=== PATIENT | female | born 1960 | race Caucasian/White ===

== ENCOUNTER 2025-06-10 14:52 | Inpatient (IN) | payer BC, SELFPAY ==
[2025-06-10] VITALS (10 sets, daily range): BP systolic 107–141; BP diastolic 47–83; BMI 18.5; BMI 18.1
[2025-06-10 13:24] LABS: Hematocrit 25.9 % (37.0-47.0); Hemoglobin 8.4 g/dL (12.0-16.0); Mean Corp Hgb Conc. 32.4 g/dL (33.0-37.0); Mean Corpuscular Volume 82.0 fL (81.0-99.0); Nucleated Red Blood Cells % 0 %; Platelet Count 141 10^3/uL (130-400); Red Cell Dist. Width 21.0 % (11.5-14.5)
[2025-06-10 13:27] LABS: APTT 25.5 Sec (23.4-35.0); INR 1.16; PT 15.1 Sec (11.4-14.6)
--- NOTE | 2025-06-10 13:31 | ED.GENMED ---
History of Present Illness
General
Chief Complaint: Rectal Bleeding
Source: patient and family
Exam Limitations: none
Time Seen by Provider: 06/10/25 12:56
Nursing documentation reviewed up to this point in time: agreed with
History of Present Illness
History of Present Illness:
64-year-old female visiting from [place]
Had some loco colored loose stools at 3 AM then vomited some similar appearing vomitus had some grits yesterday but as did family members who are not sick does not drink or smoke
Patient has complex past medical history most notably liver cancer status post resection x 2 of her liver, lung resection for mets to brain resection from mets-no blood thinners, no history of GI bleeding she did take a Naprosyn after she vomited
but none before
Patient was never a drinker, never had hepatitis
Baseline hemoglobin is in the mid 10 range per my review of her records
Past History
Past History
ED Past Medical History: Cancer
ED Past Surgical History: Brain and Other (Liver resection x 2 lung resection brain resection)
Social History
Tobacco: Non-smoker
Alcohol: None
Drug: None
Living: with family
Review of Systems
Review of Systems
All Other Systems: Not applicable
Constitutional: Reports fatigue; Denies fever
EENT: Reports no symptoms
Respiratory: Reports no symptoms
Cardiac: Denies chest pain
ABD/GI: Reports vomiting and bloody stools
: Reports no symptoms
Skin: Reports no symptoms
Neurological: Reports weakness
Endocrine: Reports no symptoms
Hematologic/Lymphatic: Reports no symptoms
Psychiatric: Reports no symptoms
Phy Exam
Physical Exam
Physical Exam:
Physical Exam
General: Chronically ill nontoxic
Neck: Patient looks pale
Heart: Tachycardia
Lungs: no acute respiratory distress. clear bilaterally
Abdomen: Soft flat nontender
Rectal maroonish guaiac positive
Neuro: alert and oriented. no focal neurological deficits
Skin: no rash
Psychiatric: well kept. interactive and cooperative
Extremities: no edema.
Course
Orders/Labs/Results
Orders:
Orders
06/10/25 12:46
Cardiac Monitoring- Treatment ONCE
IV Insert/Care/Rem.- Treatment PRN
O2 Therapy [RESP] Urgent
Titrate/Wean O2 to maintain O2 sat greater than (%): 93
Special Instructions: MAINTAIN CONTINOUS O2 SATS > OR = 93%
Pulse Ox/spot Check [RESP] Urgent
Quantity: 1
Special Instructions: ON ROOM AIR
06/10/25 13:01
Type+Screen Urgent
Complete Blood Count/With Diff Urgent
Comprehensive Metabolic Panel Urgent
PTT Urgent
Prothrombin Time Urgent
06/10/25 13:29
0.9% Sodium Chloride 1000 ml [Nss] 1,000 ml IV BOLUS
Ondansetron Injectable [Zofran] 4 mg IV NOW STA
Pantoprazole [Protonix IV] 80 mg IV NOW STA
06/10/25 13:59
US Abdomen Complete/Upper Urgent
Comment:
Reason For Exam: eval for any signs cirrhosis
06/10/25 14:07
GASTROINTESTINAL CONSULT Urgent
Consulting Provider: Varsha Obregon
Was physician already notified: Yes
06/10/25 14:13
Electrocardiogram (*1) Urgent
Reason for Study: Palpitations
EKG- Treatment ONCE
06/10/25 14:30
Heparin Pf [Heparin Lock Flush] 500 unit IV PER PROTOCOL
06/10/25 14:36
ABO2 Urgent
BBK Wristband Number:
Associate notified that ABO2 has been ordered: RICH-ER
Date: 06/10/25
Time: 13:17
Car Restorer ID: [id number]
06/10/25 14:40
Admit/Transfer Patient As Directed
Co-Sign Provider:
Level of Care: Inpatient admission
Assign to:: IMU- Intermediate Care
Physician / Group: Glen
Diagnosis: GI Bleed
Reason for Hospitalization: PPI drip, GI Consult
Expected length of stay greater than two midnights?: Yes
ELOS- Estimated Length of Stay in days: 3
I certify the patient meets the requirements for IP care: Yes
PRN Pain Medication Management As Directed
May give lesser potent ordered pain med per pt: Yes
preference::
Protocol:: Medication orders for pain may be administered in a
manner that supports deferring to patient preference
when the pt is:
- Requesting an ordered lesser potent pain medication.
Least to most potent pain medications are defined
as: acetaminophen < NSAID < tramadol < opioids
(morphine, oxycodone, hydromorphone).
- Requesting a lesser dose of the same medication IF
ORDERED.
- Requesting a less intrusive route of administration
if both routes are prescribed by the provider (PO <
IV).
06/10/25 14:41
Code Status As Directed
Resuscitation Status: Full Code
06/10/25 14:50
Pantoprazole 80 mg/100 ml Nss [Protonix] 80 mg in 100 ml IV Q10H
06/10/25 14:52
Add On- LAB Routine
Tests Added?: iron, ferritin, tibc, folate, vit b12
06/10/25 15:00
0.9% Sodium Chloride 1000 ml [Nss] 1,000 ml IV 100 mls/hr
06/10/25 17:00
H&H Q6H
06/10/25 23:00
H&H Q6H
Abnormal Lab Results
06/10/25
13:01
RBC 3.16 L 10^6/uL
(4.20-5.40)
Hgb 8.4 L g/dL
(12.0-16.0)
Hct 25.9 L %
(37.0-47.0)
MCH 26.6 L pg
(27.0-31.0)
MCHC 32.4 L g/dL
(33.0-37.0)
RDW 21.0 H %
(11.5-14.5)
MPV 11.4 H fL
(7.4-10.4)
Absolute Lymphs (auto) 0.6 L 10^3/uL
(1.2-3.4)
Neutrophils % 78.4 H %
(42.2-75.2)
Lymphocytes % 11.0 L %
(20.5-51.1)
Monocytes % 10.2 H %
(1.7-9.3)
PT 15.1 H Sec
(11.4-14.6)
Chloride 108 H mmol/L
(98-107)
BUN 26 H mg/dl
(7-17)
Creatinine 0.5 L mg/dL
(0.6-1.0)
AST 57 H U/L
(14-36)
ALT 40 H U/L
(0-35)
Alkaline Phosphatase 304 H U/L
(38-126)
Total Protein 5.3 L g/dl
(6.3-8.2)
Albumin 2.9 L g/dl
(3.5-5.0)
06/10/25 13:01
Vital Signs
Initial and Last Documented VS:
Initial Vital Signs
Temp Pulse Resp BP Pulse Ox
97.9 F 110 18 128/83 100
06/10/25 12:19 06/10/25 12:19 06/10/25 12:19 06/10/25 12:19 06/10/25 12:19
Last Documented Vital Signs
Temp Pulse Resp BP Pulse Ox
97.9 F 111 16 136/59 98
06/10/25 12:19 06/10/25 14:00 06/10/25 14:00 06/10/25 14:00 06/10/25 14:00
MDM/Problems Addressed
Differential Diagnosis Includes:
Upper GI bleed lower GI bleed colitis
MDM/Problems Addressed:
GI bleeding
Chronic conditions affecting care:
Liver cancer
Acute Exacerbation and/or Progression of Chronic Illness:
Liver cancer
*Pulse Oximetry
SaO2: 100
Oxygen Mode of Delivery: Room air
Patient hypoxic: no
*EKG
Interpreted by ED Provider?: Yes
Interpretation: normal
Comparison EKG: no comparison EKG present
Heart Rate: 78
Rate: normal
Rhythm: sinus
Ischemia: no ischemia
*Work Station Support Specialist Interpretation
Rate: normal
Interpretation: normal
Heart Rate: 78
Rhythm: sinus
*Critical Care Note
Total Time (30-74mins, 75-104mins- exclusive of procedures): 12
Update Note
Update Note:
Update patient tachycardic otherwise stable vital signs does look pale chronically ill hemoglobin noted BUN/creatinine noted will start volume resuscitation Protonix at this point I believe it would be prudent to admit her to the hospital as opposed
to going back to [place] tomorrow
ED Attending Note
-
Portions of this chart may have been created with voice recognition software.� Occasional wrong word or��sound alike� substitutions may have occurred due to the inherent limitations of voice recognition software.
Discharge Plan
Departure
Patient Disposition: Admit
Date of Disposition: 06/10/25
Time of Disposition: 14:12
Admit to: Telemetry
Presentation/result/management discussed w/ accepting MD/DO: Hospitalist
Patient with high blood pressure during this ER visit?: No
Condition: Fair
Discharge Problem:
Acute GI bleeding, Cancer of liver
Prescriptions:
No Action
levothyroxine 137 mcg Tablet
137 mcg PO DAILY
venlafaxine [Effexor XR] 75 mg Capsule,Extended Release 24hr
75 mg PO DAILY
pantoprazole [Protonix] 40 mg Tablet,Delayed Release (Dr/Ec)
40 mg PO DAILY
Cabometyx 60 mg tablet
30 mg PO DAILY
Referrals:
NONE,* [Family Provider, Internal Medicine]
Interventions
Interventions:
*Risk Screen - Suicide Last Done: 06/10/25 12:19
*General Assessment Last Done: 06/10/25 12:19
*Neglect/Abuse Screening Last Done: 06/10/25 12:19
*ED- Fall Risk Assessment Last Done: 06/10/25 12:49
*ED COVID-19 Vaccine History Last Done: 06/10/25 12:49
BX-Mivndz-Oslsdetbkv Assessment Last Done: 06/10/25 13:00
ED- Cardiac Assessment Last Done: 06/10/25 13:02
ED- Pulmonary Assessment Last Done: 06/10/25 13:02
Discharge Date and Time
Print Language: AZERI
[2025-06-10 13:36] LABS: ALT (SGPT) 40 U/L (0-35); AST (SGOT) 57 U/L (14-36); Albumin 2.9 g/dl (3.5-5.0); Alkaline Phosphatase 304 U/L (38-126); Blood Urea Nitrogen 26 mg/dl (7-17); Calcium 8.8 mg/dl (8.4-10.2); Carbon Dioxide 26 mmol/L (22-30); Chloride 108 mmol/L (98-107); Estimated Creatinine Clearance 86 ml/min; Glucose 92 mg/dl (70-99); Potassium 3.7 mmol/L (3.5-5.1); Sodium 136 mmol/L (135-145); Total Protein 5.3 g/dl (6.3-8.2); eGFR > 60.00
--- NOTE | 2025-06-10 14:10 | HPS.HSE ---
Family Physician
-
Family Physician: * NONE
Chief Complaint
-
Vomiting and Bloody Stools
History of Present Illness
Patient is a 64 y/o female past medical history of Metastatic Hepatocellular Carcinoma managed at [facility] where patient resides who presents with vomiting and bloody stools. Patient awoke around 3AM this morning to
use the bathroom at which time she a bowel movement described at loco red colored. 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 Patient then had a second bloody bowel movement about 15 minutes prior to arrival. Patient
reports ongoing treatment for her metastatic hepatocellular carcinoma which was originally diagnosed in 2019. Patient denies any prior history of GI Bleed and denies cirrhosis. She denies prior upper endoscopy or colonoscopy.
Medical History
Past Medical History
Past Medical History: Reports Other
Additional Past Medical History:
Metastatic Hepatocellular Carcinoma s/p Liver Resection / Left Lung Wedge Resection / Craniotomy for Brain Tumor Resection, Radiation and Chemotherapy
Hypothyroidism
Depression
Past Surgical History: Reports Other
Additional Past Surgical History:
Hepatic Resection
Left Lung Wedge Resection
Craniotomy
Breast Implants
Social History
Tobacco: Non-smoker
Alcohol: None
Family History
Family History: Not pertinent
Allergies / Home Medications
Allergies reflects when Allergies were last updated in [employer].
Home Medications with original date entered in [employer]
Allergy/Medication List:
Allergies
Allergy/AdvReac Type Severity Reaction Status Date / Time
No Known Allergies Allergy Unverified 06/10/25 12:19
Home Medications
cabozantinib 60 mg tablet (Cabometyx) 30 mg PO DAILY 06/10/25
levothyroxine 137 mcg tablet 137 mcg PO DAILY 06/10/25
pantoprazole 40 mg tablet,delayed release (Protonix) 40 mg PO DAILY 06/10/25
venlafaxine 75 mg capsule,extended release 24 hr (Effexor XR) 75 mg PO DAILY 06/10/25
Review of Systems
-
A 12 point ROS was completed and negative except as noted: Yes
Constitutional: Denies Fever or Chills
Respiratory: Denies Cough or Trouble Breathing
Abdomen/GI: Reports Other (Patient reports some abdominal distention related to ascites is scheduled for a paracentesis next week in [place]); Denies Abdominal Pain, Nausea or Vomiting
Physical Exam
Vital Signs
Vital Signs
Temp Pulse Resp BP Pulse Ox
97.9 F 110 18 128/83 100
06/10/25 12:19 06/10/25 12:19 06/10/25 12:19 06/10/25 12:19 06/10/25 13:31
Physical Exam
General: Comfortable and Conversant
HEENT: Anicteric and Moist mucous membranes
Respiratory: Clear and Non Labored Respirations
Cardiac: S1/S2 and Regular Rhythm
GI: Soft, Non Tender and Other (Slight distention with slight fluid wave)
Rectal: Deferred by Provider
Musculoskeletal: No Clubbing, No Cyanosis and Other (Trace lower extremity edema)
Skin: Warm and Dry
Neuro: Awake, Alert, Oriented and Nonfocal/grossly intact
Psych: Calm
Laboratory Results
-
06/10/25 13:01
06/10/25 13:01
Laboratory Results
PT 15.1 Sec (11.4-14.6) H 06/10/25 13:01
INR 1.16 06/10/25 13:01
APTT 25.5 Sec (23.4-35.0) 06/10/25 13:01
Total Bilirubin 0.6 mg/dl (0.2-1.3) 06/10/25 13:01
AST 57 U/L (14-36) H 06/10/25 13:01
ALT 40 U/L (0-35) H 06/10/25 13:01
Alkaline Phosphatase 304 U/L (38-126) H 06/10/25 13:01
Data Reviewed
-
Lab Data: Labs Reviewed by me
Impression/Plan
-
GI Bleed, unclear if upper or lower but favor upper in setting of hematemesis
-Consult GI
-Continue NPO/IVFs
-Continue Protonix drip
Acute Blood Loss Anemia
-Reviewed outpatient records with Hgb 10.6 on 05/16/25
-Trend serial Hgb
Metastatic Hepatocellular Carcinoma
-Managed at [facility]
-Hold Cabometyx
-Check Abd US to assess for underlying ascites
Hypothyroidism
-Continue levothyroxine
Depression
-Continue Effexor
DVT proph: SCDs
[2025-06-10] MEDS: NSS 1000 IV ×2 (14:12→16:07)
[2025-06-10] MEDS: PROTONIX IV 80 MG IV (14:13)
[2025-06-10] MEDS: ZOFRAN 4 MG IV (14:13)
--- NOTE | 2025-06-10 15:17 | CON.GI ---
Addendum entered and electronically signed by Varsha Obregon MD 06/10/25 17:52:
error - some distension in abd on exam
Original Note:
Consultation
-
Date/Time Consultation Requested: 06/10/2025, 2pm
Date/Time Consultation Performed: 06/10/2025, 3pm
Requesting Provider: Dr. Perkins
Performing Provider: Dr. Obregon
Reason for Consultation: hematemesis, BRBPR
Medical History
Chief Complaint / HPI
Chief Complaint: hematemesis/BRBPR
History of Present Illness:
64 yo F with past medical history of liver cancer diagnosed in 2019 undergone multiple resections, currently undergoing Y90 and oral chemo, no history of cirrhosis or underlying liver dz (no hx of etoh, obesity) presenting with hematemesis and
bright red blood per rectum. This started at 3 in the morning she had blood from both ends. She had another bloody bowel movement at 10 AM. She also endorses some dizziness and shortness of breath with exertion. Denies any abdominal pain. Her
reflux has been worse the last few days. Yesterday she felt very cold. She also has been having bloating and decreased appetite and was found to have ascites on her most recent MRI a month ago. She was due for Y90 on Thursday and plan was to do a
paracentesis at the same time.
Past Medical History
Past Medical History: Cancer (liver cancer), HTN, Hypothyroidism, Psychiatric (Depression) and Other (reflux)
Past Surgical History: Other (hepatic resection, left lung wedge, craniotomy, breast implants)
Social History
Tobacco: Non-Smoker
Alcohol: Other (rare, none since 2019)
Drug: None
Family History
Family History: Reviewed & Not Pertinent
Allergies / Home Medications
Allergy/AdvReac Type Severity Reaction Status Date / Time
No Known Allergies Allergy Verified 06/10/25 15:13
�Medication �Instructions �Recorded
cabozantinib 60 mg tablet 30 mg PO DAILY 06/10/25
(Cabometyx)
levothyroxine 137 mcg tablet 137 mcg PO DAILY 06/10/25
pantoprazole 40 mg tablet,delayed 40 mg PO DAILY 06/10/25
release (Protonix)
venlafaxine 75 mg capsule,extended 75 mg PO DAILY 06/10/25
release 24 hr (Effexor XR)
Review of Systems
-
All other systems: A 12 pt ROS was Negative except as stated above in HPI
Vital Signs
Temp Pulse Resp BP Pulse Ox
97.9 F 99 20 140/74 96
06/10/25 12:19 06/10/25 15:00 06/10/25 15:00 06/10/25 15:00 06/10/25 15:00
Physical Exam
Exam
General: Well Developed
HEENT: Normocephalic
Respiratory: Clear
Cardiac: S1/S2
GI: Non Tender and Non Distended
Genito-urinary: No Costovertebral Tender
Musculoskeletal: No Clubbing
Skin: Warm
Neuro: AO x 3
Hematologic/Lymphatic: No Lymphadenopathy
Psych: Calm
Results
WBC 5.2 10^3/uL (4.8-10.8) 06/10/25 13:01
Hgb 8.4 g/dL (12.0-16.0) L 06/10/25 13:01
Hct 25.9 % (37.0-47.0) L 06/10/25 13:01
MCV 82.0 fL (81.0-99.0) 06/10/25 13:01
Plt Count 141 10^3/uL (130-400) 06/10/25 13:01
Absolute Neuts (auto) 4.1 10^3/uL (1.4-6.5) 06/10/25 13:01
PT 15.1 Sec (11.4-14.6) H 06/10/25 13:01
INR 1.16 08/02/25 13:01
APTT 25.5 Sec (23.4-35.0) 06/10/25 13:01
Sodium 136 mmol/L (135-145) 06/10/25 13:01
Potassium 3.7 mmol/L (3.5-5.1) 06/10/25 13:
Chloride 108 mmol/L (98-107) H 06/10/25 13:
Carbon Dioxide 26 mmol/L (22-30) 06/10/25 13:
BUN 26 mg/dl (7-17) H 06/10/25 13:
Creatinine 0.5 mg/dL (0.6-1.0) L 06/10/25 13:
Calcium 8.8 mg/dl (8.4-10.2) 06/10/25 13:
Total Bilirubin 0.6 mg/dl (0.2-1.3) 06/10/25 13:
AST 57 U/L (14-36) H 06/10/25 13:01
ALT 40 U/L (0-35) H 06/10/25 13:01
Alkaline Phosphatase 304 U/L (38-126) H 06/10/25 13:01
Diagnostic Image Results:
Prior GI Procedures:
EGD:
Colonoscopy:
Assessment / Plan
-
64 yo F pmh liver cancer p/w hematemesis and BRBPR. Hb 8.4, plt 141, INR 1.16, BUN 26.
BP stable, tachycardia)
Diff diagnosis: PUD (no NSAIDs), varices (? history of cirrhosis - not known but does have recent onset of ascites and past history of liver cancer), AVM, seems less likely to be small bowel/lower GIB with hematemesis.
Given the history of ? cirrhosis plan for EGD today. Discussed with patient risk, terms, benefits of upper endoscopy including but not limited to bleeding, infection, perforation. Patient understands risk and is willing to proceed. In the
interim, recommend PPI drip, octreotide drip, n.p.o., trend hemoglobin. Had MRI at outside institution 1 year ago if possible can get these results otherwise consider Doppler ultrasound. May need paracentesis prior to discharge. Further
recommendations pending upper endoscopy. If does have signs of pHTN will need antibiotics as well for bleeding. Discussed with hospitalist physician tutoring assistant and emergency room physician.
-
-
Thank you for consultation and allowing me to participate in the patient's care. Please call the it application administrator GI physician during the after hours with any questions or concerns.
[2025-06-10] MEDS: PROTONIX 100 IV (15:19)
--- NOTE | 2025-06-10 15:41 | W.PN.UPDATE ---
Update Note
Progress Note Update
Patient seen and examined independently
Please see PA note for full details
64 y/o woman with a past medical history of Metastatic Hepatocellular Carcinoma presents with vomiting and bloody stools. She awoke around 3AM to use the bathroom at which time she a bowel movement described at loco red color. She then had an
episode of hematemesis. She had a second bloody bowel movement 15 minutes prior to arrival. Patient reports ongoing treatment for her metastatic hepatocellular carcinoma. She denies any prior history of GI Bleed and denies cirrhosis. She denies
prior upper endoscopy or colonoscopy. At the time of my interview she was comfortable.
Past Medical History
Metastatic Hepatocellular Carcinoma s/p Liver Resection
Left Lung Wedge Resection
Craniotomy for Brain Tumor Resection,
Radiation and Chemotherapy
Hypothyroidism
Depression
Hepatic Resection
Breast Implants
Physical Exam
General: Comfortable
Respiratory: Clear
Cardiac: S1/S2
GI: Soft, Non Tender
Skin: Warm and Dry
Neuro: Awake, Alert,
Psych: Calm
Impression/Plan
1. GI Bleed, unclear if upper or lower but favor upper in setting of hematemesis
Consult GI - needs EGD
NPO with IVFs
Protonix drip
2. Acute Blood Loss Anemia
Trend serial Hgb
Please see PA note for full details on:
Metastatic Hepatocellular Carcinoma
Hypothyroidism
Depression
[2025-06-10 15:47] LABS: Iron 53 ug/dl (37-170)
[2025-06-10 15:57] LABS: Total Iron Binding Capacity 302 ug/dl (265-497)
[2025-06-10] MEDS: SANDOSTATIN 250 MCG IV (16:09)
--- NOTE | 2025-06-10 16:20 | CM ---
Reviewed the chart notes and spoke with the patient at the bedside. Patient resides in [place]. The patient resides in a two story home with a prefinish operator (a friend of her daughter's) who works around the house and property for room and board. The
patient reports no DME/VN/SNF in the past. The confirmed her pharmacy of choice is [facility] while she is here in town. CM continues to be available to patient/family and is monitoring medical plan for needs at discharge.
Plan: Discharge once medically stable. No needs anticipated at this time.
[2025-06-10 16:24] LABS: Ferritin 16.5 ng/ml (11.1-264.0)
[2025-06-10 16:55] LABS: Folate 3.0 ng/ml (2.76-20); Vitamin B12 283 pg/ml (239-931)
[2025-06-10 19:36] LABS: Hematocrit 22.7 % (37.0-47.0); Hemoglobin 7.4 g/dL (12.0-16.0)
[2025-06-10] MEDS: PROTONIX IV 40 MG IV (19:49)
[2025-06-10] MEDS: ROCEPHIN 1000 MG IV (19:49)
--- NOTE | 2025-06-10 20:19 | PTCARENOTE ---
Addendum entered by Ge Burris RN 06/10/25 20:43:
1 pt. HGB drop to 7.4. House ANISA notified to get consent incase product is needed. T/S completed prior.
Rec: Suspect potentially systemically diluted House ANISA notified orders to change IVF rate to 75ml/hr.
Recheck H/H 2300.
Original Note:
Assumed care of pt. approx 1900.
Admit to unit post EGD. Offgoing report completed w. previous RN.
Mentating appropriately. Full gaze, normocephalic, focally intact.
Sinus to sinus tach w. periods of ectopic activity PAC/PVC. Normotensive, Normothermic.
Urinating w.o issue, No reports of hematemesis, or hematochezia, euglycemic.
Offers no complaints of pain, all questions answered.
[2025-06-10 23:18] LABS: Hematocrit 19.8 % (37.0-47.0); Hemoglobin 6.5 g/dL (12.0-16.0)
--- NOTE | 2025-06-10 23:18 | PTCARENOTE ---
Addendum entered by Ge Burris RN 06/10/25 23:28:
Orders to transfuse x1 U PRBC --> RPT H/H 2 hours post transfusion per house ANISA.
Original Note:
H/H Critical results relayed to [facility] ANISA.
--- NOTE | 2025-06-10 23:23 | W.PN.UPDATE ---
Update Note
Progress Note Update
~ 20:30 Concern for possible need for transfusion, Hgb 7.4. Patient Ox3, pale, Vital signs stable. Discussed possible need for blood transfusion with patient, reviewed risks and benefits, patient verbalized understanding,� written consent obtained.
23:00 critical lab received: Hgb 6.5, Hct 19.8. Ordered 1 unit PRBC's to be transfused tonight. Repeat H&H ordered, to be done 2 hours after completion of transfusion.
~ 3 am - Repeat Hgb 8.0. Repeat H&H ordered for 9 am.
~ 6 am - RN advised that patient reported black, tarry bowel movement this am.
[2025-06-11] VITALS (25 sets, daily range): BP systolic 112–149; BP diastolic 50–120; BMI 18.7
[2025-06-11] MEDS: NSS 1000 IV (00:06)
[2025-06-11] MEDS: SANDOSTATIN 250 MCG IV ×3 (00:06→23:18)
[2025-06-11 03:13] LABS: Hematocrit 24.3 % (37.0-47.0); Hemoglobin 8.0 g/dL (12.0-16.0); Mean Corp Hgb Conc. 32.9 g/dL (33.0-37.0); Mean Corpuscular Volume 82.7 fL (81.0-99.0); Platelet Count 83 10^3/uL (130-400); Red Cell Dist. Width 19.6 % (11.5-14.5)
[2025-06-11 03:30] LABS: ALT (SGPT) 33 U/L (0-35); AST (SGOT) 49 U/L (14-36); Albumin 2.3 g/dl (3.5-5.0); Alkaline Phosphatase 255 U/L (38-126); Blood Urea Nitrogen 23 mg/dl (7-17); Calcium 7.4 mg/dl (8.4-10.2); Carbon Dioxide 23 mmol/L (22-30); Chloride 113 mmol/L (98-107); Estimated Creatinine Clearance 84 ml/min; Glucose 95 mg/dl (70-99); Magnesium 1.4 mg/dl (1.6-2.3); Potassium 3.8 mmol/L (3.5-5.1); Sodium 138 mmol/L (135-145); Total Protein 4.4 g/dl (6.3-8.2); eGFR > 60.00
--- NOTE | 2025-06-11 06:10 | PTCARENOTE ---
Pt. had x1 episode of black tarry bowel movement.
House ANISA notified.
Normotensive, mentating approp.
[2025-06-11] MEDS: SYNTHROID 137 MCG PO (06:12)
[2025-06-11] MEDS: PROTONIX IV 40 MG IV ×2 (07:37→19:27)
[2025-06-11] MEDS: EFFEXOR XR 75 MG PO (07:38)
[2025-06-11 09:04] LABS: Hematocrit 26.9 % (37.0-47.0); Hemoglobin 8.9 g/dL (12.0-16.0)
[2025-06-11] MEDS: MAGNESIUM SULFATE 102 GRAMS IV (10:29)
--- NOTE | 2025-06-11 11:35 | W.PN.HOSP.TC ---
Today's Communication/Plan
-
Continue to trend hemoglobin
Transfuse as necessary
Continue with PPI, octreotide antibiotic
Replete magnesium
Repeat plan for endoscopy per GI
Assessment / Plan
Assessment / Plan
Acute blood loss anemia
Acute upper GI bleeding
- Status post endoscopy on admission with duodenal ulcer and gastric varices
- Patient remains with melanotic stools. Drop in hemoglobin.
- GI planning for repeat endoscopy today
- In the interim continue with PPI, octreotide. Ceftriaxone started by gastroenterology. NPO. Diet per GI.
Acute Blood Loss Anemia
-Reviewed outpatient records with Hgb 10.6 on 05/16/25
- Hemoglobin 8.9. Continue to trend every 6 hours and transfuse as needed.
Metastatic Hepatocellular Carcinoma
Pancytopenia
-Managed at [facility]
-Hold Cabometyx
-Check Abd US to assess for underlying ascites. If positive for ascites then ask [facility] for paracentesis
Chronic bradycardia
- Per patient at baseline her heart rate at rest is around mid 40s.
- Denies any lightheadedness or dizziness. Continue to monitor closely
- No pauses noted
Hypothyroidism
-Continue levothyroxine
Depression
-Continue Effexor
Hypomagnesemia
- Replete and monitor
DVT proph: SCDs in the setting of gastrointestinal bleeding
Discussed with gastroenterology
Anticipated Discharge: > 48 hours
Subjective/Interval History
-
Date of Service: June 11, 2025
states of abd distention
having melanotic stools
Objective Data
-
Labs:
Laboratory Results
06/11/25 06/11/25 06/11/25
02:52 03:00 04:00
WBC 2.5 L
Hgb 8.0 L D Cancelled Cancelled
Hct 24.3 L Cancelled Cancelled
Plt Count 83 L D
Sodium 138
Potassium 3.8
Chloride 113 H
Carbon Dioxide 23
BUN 23 H
Creatinine 0.6
Glucose 95
Calcium 7.4 L
Total Bilirubin 0.6
AST 49 H
ALT 33
Alkaline Phosphatase 255 H
06/11/25 06/11/25 06/11/25
08:53 15:00 21:00
WBC
Hgb 8.9 L Pending Pending
Hct 26.9 L Pending Pending
Plt Count
Sodium
Potassium
Chloride
Carbon Dioxide
BUN
Creatinine
Glucose
Calcium
Total Bilirubin
AST
ALT
Alkaline Phosphatase
Vital Signs:
Vital Signs
Temp Pulse Resp BP Pulse Ox
98.1 F 45 5 125/69 99
06/11/25 07:34 06/11/25 06:00 06/11/25 06:00 06/11/25 06:00 06/11/25 06:16
I&O
06/10/25 06/11/25 06/12/25
06:59 06:59 06:59
Intake Total 1849
Balance 1849
Physical Exam
-
General: Well Developed, No Apparent Distress and Other (pale)
HEENT: Normocephalic, Atraumatic and Moist Mucous Membranes
Respiratory: Clear to Auscultation
Cardiac: Regular Rhythm and S1/S2; Negative Murmur, Rub or Gallop
GI: Soft, Nontender, Normal Bowel Sounds and Distended (+fluid wave ); Negative Organomegaly
Rectal: Deferred by Provider
Musculoskeletal: No Clubbing, No Cyanosis and No Edema
Skin: Negative Rash
Neuro: Awake, Alert, Oriented, AO x 3, No Motor Deficits and Nonfocal/Grossly Intact
Psych: Calm
Data Reviewed
-
Total Time Spent with Patient (in minutes): 55
--- NOTE | 2025-06-11 12:25 | W.PN.UPDATE ---
Update Note
Progress Note Update
I discussed with patient and hospitalist. Patient with melena last night and this morning. Drop in hemoglobin to 6.5 requiring a unit of blood last night. Hemoglobin responded more than would expect from 6.5 to 8-8.9. However, this is all more
bleeding than I would expect from that small ulcer that had no stigmata of bleeding. Therefore, we will proceed with repeat endoscopy today with plans to band the varices unless overt bleeding otherwise found. Patient understood and is agreeable.
[2025-06-11 15:12] LABS: Hematocrit 25.1 % (37.0-47.0); Hemoglobin 8.2 g/dL (12.0-16.0)
--- NOTE | 2025-06-11 15:50 | PTCARENOTE ---
Rec'd report from PACU; Pt returned to room following endoscopy. AAO x 3, OOB to bathroom. Denies pain. Will continue to monitor and assess.
[2025-06-11] MEDS: ROCEPHIN 1000 MG IV (17:39)
[2025-06-11] MEDS: STERILE WATER FOR INJECTION 10 ML IV (17:39)
[2025-06-11] MEDS: NSS (PRESERVATIVE FREE) 10 ML IV (19:27)
[2025-06-11] MEDS: TYLENOL 650 MG PO (19:27)
[2025-06-11 22:16] LABS: Hematocrit 24.7 % (37.0-47.0); Hemoglobin 8.0 g/dL (12.0-16.0)
--- NOTE | 2025-06-11 22:22 | PTCARENOTE ---
Cannot verify accuracy of VS prior to 19:00. Pt continues on octreotide gtt. Reports dark, tarry stool x1. Repeat Hgb 8.0. Pt c/o mild back pain which she attributes to spending time in bed. Medicated per JAN. Pt denies additional complaints at this
time. Sinus rhythm, sinus arrhythmia on CM with PACs and PVCs. Call rider within reach. Pt ringing appropriately.
[2025-06-11] MEDS: ULTRAM 25 MG PO (23:18)
[2025-06-12] VITALS (17 sets, daily range): BP systolic 79–179; BP diastolic 48–92; BMI 18.8
[2025-06-12] MEDS: SYNTHROID 137 MCG PO (04:40)
[2025-06-12 05:13] LABS: INR 1.14; PT 15.0 Sec (11.4-14.6)
[2025-06-12 05:25] LABS: ALT (SGPT) 65 U/L (0-35); AST (SGOT) 100 U/L (14-36); Albumin 2.6 g/dl (3.5-5.0); Alkaline Phosphatase 287 U/L (38-126); Blood Urea Nitrogen 16 mg/dl (7-17); Calcium 7.8 mg/dl (8.4-10.2); Carbon Dioxide 22 mmol/L (22-30); Chloride 112 mmol/L (98-107); Estimated Creatinine Clearance 87 ml/min; Glucose 103 mg/dl (70-99); Potassium 4.0 mmol/L (3.5-5.1); Sodium 136 mmol/L (135-145); Total Protein 5.0 g/dl (6.3-8.2); eGFR > 60.00
[2025-06-12 05:31] LABS: Hematocrit 26.0 % (37.0-47.0); Hemoglobin 8.4 g/dL (12.0-16.0); Mean Corp Hgb Conc. 32.3 g/dL (33.0-37.0); Mean Corpuscular Volume 85.5 fL (81.0-99.0); Platelet Count 83 10^3/uL (130-400); Red Cell Dist. Width 19.9 % (11.5-14.5)
[2025-06-12 07:25] LABS: Nucleated Red Blood Cells % 0 %
[2025-06-12] MEDS: ULTRAM 25 MG PO (07:33)
[2025-06-12] MEDS: EFFEXOR XR 75 MG PO (07:33)
[2025-06-12] MEDS: PROTONIX IV 40 MG IV ×2 (07:34→19:55)
[2025-06-12] MEDS: NSS (PRESERVATIVE FREE) 10 ML IV ×2 (07:34→19:55)
--- NOTE | 2025-06-12 08:16 | W.PN.HOSP.TC ---
Today's Communication/Plan
-
see A/P
Assessment / Plan
Assessment / Plan
HPI: 64 yo female past medical history of Metastatic Hepatocellular Carcinoma managed at [facility] where patient resides; who presented with vomiting and bloody stools.
Patient awoke around 3AM and had bowel movement described as loco red colored. She then had an episode of hematemesis. Patient then had a second bloody bowel movement about 15 minutes prior to arrival.
Patient reports ongoing treatment for her metastatic hepatocellular carcinoma which was originally diagnosed in 2019.
Patient denies any prior history of GI Bleed and denies cirrhosis. She denies prior upper endoscopy or colonoscopy.
A/P:
# Acute blood loss anemia 2/2 Acute upper GI bleeding
s/p 1 unit PRBC transfusion
Status post endoscopy on admission 06/10 which noted duodenal ulcer and esophageal varices.
Due to persistent melanotic stools and drop in hemoglobin, s/p repeat endoscopy 06/11 for esophageal varices banding.
Continue octreotide, ceftriaxone and PPI IV BID.
Hgb stable at 8.4 today
Cont clear liquid diet, ADAT
For paracentesis today for moderate ascites on US.
# Metastatic Hepatocellular Carcinoma
# Pancytopenia likely due to chemo
# Transaminitis
Managed at [facility]
Hold Cabometyx
For paracentesis today for moderate ascites on US.
# Chronic bradycardia
Per patient at baseline her heart rate at rest is around mid 40s.
Denies any lightheadedness or dizziness. Continue to monitor closely
No pauses noted
# Hypothyroidism
Continue levothyroxine
# Depression
Continue Effexor
# Hypomagnesemia
Replete and monitor
DVT proph: SCDs in the setting of gastrointestinal bleeding
FC
DW RN
total time spent 51 min
Anticipated Discharge: 24 - 48 hours
Subjective/Interval History
-
Date of Service: June 12, 2025
Objective Data
-
Labs:
Laboratory Results
06/11/25 06/12/25
22:03 04:42
WBC 2.4 L*
Hgb 8.0 L 8.4 L
Hct 24.7 L 26.0 L
Plt Count 83 L
PT 15.0 H
INR 1.14
Sodium 136
Potassium 4.0
Chloride 112 H
Carbon Dioxide 22
BUN 16
Creatinine 0.6
Glucose 103 H
Calcium 7.8 L
Total Bilirubin 0.8
AST 100 H
ALT 65 H
Alkaline Phosphatase 287 H
Vital Signs:
Vital Signs
Temp Pulse Resp BP Pulse Ox
36.7 C 92 27 136/73 97
06/12/25 07:08 06/12/25 02:00 06/12/25 02:00 06/12/25 00:00 06/12/25 02:00
I&O
06/11/25 06/12/25 06/13/25
06:59 06:59 06:59
Intake Total 1849
Balance 1849
Review of Systems
-
History Source: Patient
Abdomen/GI: Reports Bloated
Physical Exam
-
General: Well Developed, No Apparent Distress, Comfortable, Conversant and Other (pale)
HEENT: Normocephalic, Atraumatic and Moist Mucous Membranes
Respiratory: Clear to Auscultation and Non Labored Respirations; Negative Accessory Resp Muscle Use
Cardiac: Regular Rhythm and S1/S2; Negative Murmur, Rub or Gallop
GI: Soft, Nontender, Normal Bowel Sounds and Distended; Negative Organomegaly
Rectal: Deferred by Provider
Musculoskeletal: No Clubbing, No Cyanosis and No Edema
Skin: Negative Rash
Neuro: Awake, Alert, Oriented and AO x 3
Psych: Calm and Intact Judgement/Insight
Data Reviewed
-
Labs: Labs Reviewed by me
[2025-06-12] MEDS: SANDOSTATIN 250 MCG IV ×2 (08:28→19:55)
--- NOTE | 2025-06-12 08:50 | W.PN.GI.CBS2 ---
Today's Communication / Plan
-
octreotide, ppi, hb trend, para
Assessment / Plan
-
64 yo F pmh liver cancer with mets s/p multiple resections and undergoing Y90 p/w hematemesis and BRBPR. Hb 8.4, plt 141, INR 1.16, BUN 26.
EGD 06/10 showed ulcer and varices - thought ulcer cause of bleeding
However then had melena and drop in Hb so repeated EGD 06/11 and banded the varices
New diagnosis of cirrhosis (? related to Y90?)
Recommendations:
- Trend Hb
- Octreotide gtt
- PPI IV BID
- Clear liquid diet
- Para today
- Would benefit from coreg, lasix, aldactone on DC but her pulse was in the 40-50s yesterday, monitor
Patient follows up at [place] (lives there, here visiting her sister)
Subjective
Subjective
Date of Service: June 12, 2025
some melena
no abd pain
Objective
Data Reviewed
Laboratory Data:
Laboratory Results
06/12/25 04:42
06/12/25 04:42
Laboratory Results
PT 15.0 Sec (11.4-14.6) H 06/12/25 04:42
INR 1.14 06/12/25 04:42
APTT 25.5 Sec (23.4-35.0) 06/10/25 13:01
Magnesium 1.4 mg/dl (1.6-2.3) L 06/11/25 02:52
Total Bilirubin 0.8 mg/dl (0.2-1.3) 06/12/25 04:42
AST 100 U/L (14-36) H 06/12/25 04:42
ALT 65 U/L (0-35) H 06/12/25 04:42
Alkaline Phosphatase 287 U/L (38-126) H 06/12/25 04:42
Vital Signs and I&O:
Vital Signs
Temp Pulse Resp BP Pulse Ox
98.1 F 92 27 136/73 97
06/12/25 07:08 06/12/25 02:00 06/12/25 02:00 06/12/25 00:00 06/12/25 02:00
I&O
06/11/25 06/12/25 06/13/25
06:59 06:59 06:59
Intake Total 1849
Balance 1849
Physical Exam
Physical Exam
GI: Non Distended and Non Tender
[2025-06-12 09:10] LABS: Magnesium 1.8 mg/dl (1.6-2.3)
--- NOTE | 2025-06-12 10:53 | PTCARENOTE ---
Pt to IR at this time
--- NOTE | 2025-06-12 12:53 | CM ---
CM reviewed chart- ADC 1-2 days
Per chart review, pt maintains indep throughout room
Anticipate no needs on dc
CM will continue to follow for dc planning
Discharge Disposition- home, no needs anticipated
[2025-06-12 13:17] LABS: Body Fluid Second Tech AMA
--- NOTE | 2025-06-12 15:08 | W.PN.UPDATE ---
Update Note
Progress Note Update
no sbp fluid studies c/w cirrhosis
1.5 L removed
[2025-06-12] MEDS: ROCEPHIN 1000 MG IV (17:48)
[2025-06-12] MEDS: STERILE WATER FOR INJECTION 10 ML IV (17:48)
[2025-06-13] VITALS (13 sets, daily range): BP systolic 120–159; BP diastolic 51–74; BMI 17.8
--- NOTE | 2025-06-13 02:05 | PTCARENOTE ---
Pt denies complaints. Remains on ocreotide gtt. Able to ambulate to bathroom and back with minimal assistance.
[2025-06-13] MEDS: SANDOSTATIN 250 MCG IV (04:57)
[2025-06-13 05:46] LABS: Hematocrit 23.6 % (37.0-47.0); Hemoglobin 7.6 g/dL (12.0-16.0); Mean Corp Hgb Conc. 32.2 g/dL (33.0-37.0); Mean Corpuscular Volume 85.8 fL (81.0-99.0); Platelet Count 56 10^3/uL (130-400); Red Cell Dist. Width 19.5 % (11.5-14.5)
[2025-06-13] MEDS: SYNTHROID 137 MCG PO (06:02)
[2025-06-13 06:04] LABS: ALT (SGPT) 49 U/L (0-35); AST (SGOT) 62 U/L (14-36); Albumin 2.5 g/dl (3.5-5.0); Alkaline Phosphatase 278 U/L (38-126); Blood Urea Nitrogen 7 mg/dl (7-17); Calcium 7.6 mg/dl (8.4-10.2); Carbon Dioxide 24 mmol/L (22-30); Chloride 109 mmol/L (98-107); Estimated Creatinine Clearance 83 ml/min; Glucose 93 mg/dl (70-99); Magnesium 1.7 mg/dl (1.6-2.3); Potassium 3.5 mmol/L (3.5-5.1); Sodium 135 mmol/L (135-145); Total Protein 4.6 g/dl (6.3-8.2); eGFR > 60.00
[2025-06-13 06:59] LABS: Absolute Neutrophils -Man Diff 1.1 10^3/uL (1.4-6.5); Anisocytosis 3+; Normal RBC Morphology No; Platelets Checked Yes; Total Cells Counted 100
--- NOTE | 2025-06-13 07:52 | W.PN.HOSP.TC ---
Today's Communication/Plan
-
see A/P
Assessment / Plan
Assessment / Plan
HPI: 64 yo female past medical history of Metastatic Hepatocellular Carcinoma managed at [facility] where patient resides; who presented with vomiting and bloody stools.
Patient awoke around 3AM and had bowel movement described as loco red colored. She then had an episode of hematemesis. Patient then had a second bloody bowel movement about 15 minutes prior to arrival.
Patient reports ongoing treatment for her metastatic hepatocellular carcinoma which was originally diagnosed in 2019.
Patient denies any prior history of GI Bleed and denies cirrhosis. She denies prior upper endoscopy or colonoscopy.
A/P:
# Acute blood loss anemia 2/2 Acute upper GI bleeding
s/p 1 unit PRBC transfusion
Status post endoscopy on admission 06/10 which noted duodenal ulcer and esophageal varices.
Due to persistent melanotic stools and drop in hemoglobin, s/p repeat endoscopy 06/11 for esophageal varices banding.
Continue octreotide, ceftriaxone and PPI IV BID.
Noted Hgb dropped from 8.4 to 7.6 today, cont to monitor closely
d/w GI, recc would hold off transfusion for now and monitor
Cont clear liquid diet, ADAT per GI
# Metastatic Hepatocellular Carcinoma
# Pancytopenia likely due to chemo
# Transaminitis
# Cirrhosis with Ascites
Managed at [facility]
Hold Cabometyx
s/p paracentesis 06/12, 1.5 L removed, no SBP
# Chronic bradycardia
Denies any lightheadedness or dizziness. No pauses noted.
Per patient at baseline her heart rate at rest is around mid 40s. Not a candidate for BB.
Continue to monitor closely.
# Hypothyroidism
Continue levothyroxine
# Depression
Continue Effexor
# Hypomagnesemia
# Hypokalemia
Replete and monitor lytes
DVT proph: SCDs in the setting of gastrointestinal bleeding
FC
DW GI
total time 51 min
Anticipated Discharge: > 48 hours
Subjective/Interval History
-
Date of Service: June 13, 2025
Objective Data
-
Labs:
Laboratory Results
06/13/25
05:11
WBC 1.5 L*
Hgb 7.6 L
Hct 23.6 L
Plt Count 56 L D
Sodium 135
Potassium 3.5
Chloride 109 H
Carbon Dioxide 24
BUN 7
Creatinine 0.5 L
Glucose 93
Calcium 7.6 L
Total Bilirubin 0.7
AST 62 H
ALT 49 H
Alkaline Phosphatase 278 H
Vital Signs:
Vital Signs
Temp Pulse Resp BP Pulse Ox
36.6 C 44 15 125/58 97
06/13/25 03:12 06/13/25 06:00 06/13/25 06:00 06/13/25 06:00 06/12/25 22:00
I&O
06/12/25 06/13/25 06/14/25
06:59 06:59 06:59
Intake Total 480 / 480
Balance 480 / 480
Review of Systems
-
History Source: Patient
Abdomen/GI: Reports Bloody Stools (very mild)
Physical Exam
-
General: Well Developed, No Apparent Distress, Comfortable, Conversant and Other (pale)
HEENT: Normocephalic, Atraumatic and Moist Mucous Membranes
Respiratory: Clear to Auscultation and Non Labored Respirations; Negative Accessory Resp Muscle Use
Cardiac: Regular Rhythm and S1/S2; Negative Murmur, Rub or Gallop
GI: Soft, Nontender, Nondistended and Normal Bowel Sounds; Negative Organomegaly
Rectal: Deferred by Provider
Musculoskeletal: No Clubbing, No Cyanosis and No Edema
Skin: Negative Rash
Neuro: Awake, Alert, Oriented and AO x 3
Psych: Calm and Intact Judgement/Insight
Data Reviewed
-
Labs: Labs Reviewed by me
[2025-06-13] MEDS: PROTONIX IV 40 MG IV ×2 (09:01→21:16)
[2025-06-13] MEDS: KCL 270 MEQ IV (09:01)
[2025-06-13] MEDS: EFFEXOR XR PO ×2 (09:01→13:33)
[2025-06-13] MEDS: NSS (PRESERVATIVE FREE) 10 ML IV ×2 (09:02→21:16)
[2025-06-13] MEDS: ULTRAM 25 MG PO ×2 (13:31→21:29)
--- NOTE | 2025-06-13 14:37 | W.PN.GI.CBS2 ---
Addendum entered and electronically signed by Jesenia Krishna MD 06/13/25 18:21:
I saw and examined the patient.
The FIELD MERCHANDISER or PA's note was reviewed and I agree with the note.
Comment: Patient denies any abdominal pain, nausea or vomiting. She did have multiple stool overnight but had only 1 episode of dark stool and most recent ones have been brown/yellow. She is tolerating clear liquid diet.
Noted hemoglobin did trend down from 8.4-7.6.
Paracentesis without SBP.
Upper endoscopy 06/12/2025 with grade 2 esophageal varices status post banding and eradication, portal hypertensive gastropathy noted in nonbleeding duodenal ulcer noted as well.
- Continue pantoprazole 40 mg twice a day
Hold off on octreotide drip, can stop ceftriaxone as well.
Okay to advance to full liquid diet. Okay to advance to soft 2 g sodium diet if tolerating full liquid diet.
Avoid NSAIDs.
Ideally she should be on a beta-ivet with history of esophageal varices but patient's heart rate and blood pressure are low, beta-blockers on hold.
She did have ascites on imaging, she would be a candidate to start Lasix 20 mg and Aldactone 50 mg once she goes back to her primary team in [place]. She needs to follow-up with electrolytes after starting the diuretics.
Noted slight drop in hemoglobin without any GI bleeding. Likely equilibration. Hold off on blood transfusion.
Monitor H&H and if stable, okay to DC to go back home to [place]. She should be following up closely with her oncologist, as per patient her oncologist is trying to set her up with a local pharmacy cashier there.
Informed patient to take all the records with her at discharge.
Original Note:
Today's Communication / Plan
-
advance diet
trend labs
Assessment / Plan
-
64 yo F pmh liver cancer with mets s/p multiple resections and undergoing Y90 p/w hematemesis and BRBPR. Hb 8.4, plt 141, INR 1.16, BUN 26.
EGD 06/10 showed ulcer and varices - thought ulcer cause of bleeding
However then had melena and drop in Hb so repeated EGD 06/11 and banded the varices
New diagnosis of cirrhosis (? related to Y90?)
Recommendations:
- CBC in the am
- Pantoprazole 40 mg IV BID
- Full liquid diet, will likely advance to soft 2 gm low NA diet
- Paracentesis without SBP
- daily weights
- Would benefit from coreg, lasix, aldactone on DC but her pulse is in the 40-50s intermittently. Gave patient recommendations of Meds after DC of Lasix 20 mg and Aldactone 50 mg (no Rx to be given) she needs to follow up with GI or PCP. Patient has
appt with her Oncologist next week who will be assisting her with this.
-Patient follows up at [place] (lives there, here visiting her sister)
Subjective
Subjective
Date of Service: June 13, 2025
Patient initially with a BM with blood in it, however as these progressed she had multiple loose brown/yellow bile stained BMs. Hgb did decrease however in the presence of varices would favor to hold on blood transfusion without active bleeding.
Patient with heartburn sx, worse then her home sx. Tolerating clear diet and would like to advance. Cannot add Coreg as patient with HR in the 40's at times. Patient does admit to taking Maxzide at home that was and Aldactone Rx by PCP. She
has reached out to her Oncologist to arrange follow up with GI upon her return to [place] and will be seeing her Oncologist next week. Advised not to take diuretics until seen by provider.
Objective
Data Reviewed
Laboratory Data:
Laboratory Results
06/13/25 05:11
06/13/25 05:11
Laboratory Results
PT 15.0 Sec (11.4-14.6) H 06/12/25 04:42
INR 1.14 06/12/25 04:42
APTT 25.5 Sec (23.4-35.0) 06/10/25 13:01
Magnesium 1.7 mg/dl (1.6-2.3) 06/13/25 05:11
Total Bilirubin 0.7 mg/dl (0.2-1.3) 06/13/25 05:11
AST 62 U/L (14-36) H 06/13/25 05:11
ALT 49 U/L (0-35) H 06/13/25 05:11
Alkaline Phosphatase 278 U/L (38-126) H 06/13/25 05:11
Vital Signs and I&O:
Vital Signs
Temp Pulse Resp BP Pulse Ox
98.2 F 91 19 145/67 96
06/13/25 11:49 06/13/25 10:00 06/13/25 10:00 06/13/25 10:00 06/13/25 12:12
I&O
06/12/25 06/13/25 06/14/25
06:59 06:59 06:59
Intake Total 480 / 480
Balance 480 / 480
Physical Exam
Physical Exam
HEENT: Anicteric
Cardiology: Normal Sinus Rhythm (dylan at times down to 45)
Pulmonary: Clear
GI: Soft, Non Distended, Non Tender and Normal Bowel Sounds
Extremities: No Edema
Neuro: Non Focal
[2025-06-13] MEDS: CARAFATE SUSPENSION 1 GM PO (15:06)
--- NOTE | 2025-06-13 17:00 | PTCARENOTE ---
Patient tolerated full liquid diet. VS stable. Room air sat 95%-97%. SR/SB with PAC'S and PVC's. Patient ambulating to BR independently. Ultram given for mid back pain. Abdomen distended band aide intact LLQ. Will continue to monitor.
[2025-06-13] MEDS: TYLENOL 650 MG PO (17:30)
[2025-06-13] MEDS: ROCEPHIN 1000 MG IV (17:31)
[2025-06-13] MEDS: STERILE WATER FOR INJECTION 10 ML IV (17:31)
[2025-06-13] MEDS: FLUSH (NSS) 2 FLUSH IV (17:32)
[2025-06-13] MEDS: EFFEXOR XR 75 MG PO (21:17)
[2025-06-14] VITALS (12 sets, daily range): BP systolic 102–156; BP diastolic 50–79; PULSE 89–110; O2SAT 100; BMI 17.7
--- NOTE | 2025-06-14 02:36 | PTCARENOTE ---
Pt AAOx4. Pt appearing in upbeat positive mood. Pt had mild complaints of pain in L shoulder/ back, see mar for media relations specialist. Pt able to make needs known no other complaints at this time. Assessment care and vitals as charted.
[2025-06-14] MEDS: SYNTHROID 137 MCG PO (04:07)
[2025-06-14 04:52] LABS: Hematocrit 25.0 % (37.0-47.0); Hemoglobin 8.0 g/dL (12.0-16.0); Mean Corp Hgb Conc. 32.0 g/dL (33.0-37.0); Mean Corpuscular Volume 86.5 fL (81.0-99.0); Platelet Count 59 10^3/uL (130-400); Red Cell Dist. Width 19.4 % (11.5-14.5)
[2025-06-14 05:05] LABS: ALT (SGPT) 44 U/L (0-35); AST (SGOT) 53 U/L (14-36); Albumin 2.7 g/dl (3.5-5.0); Alkaline Phosphatase 323 U/L (38-126); Blood Urea Nitrogen 6 mg/dl (7-17); Calcium 7.9 mg/dl (8.4-10.2); Carbon Dioxide 23 mmol/L (22-30); Chloride 108 mmol/L (98-107); Estimated Creatinine Clearance 82 ml/min; Glucose 93 mg/dl (70-99); Potassium 3.8 mmol/L (3.5-5.1); Sodium 134 mmol/L (135-145); Total Protein 5.0 g/dl (6.3-8.2); eGFR > 60.00
[2025-06-14 06:27] LABS: Absolute Neutrophils -Man Diff 1.0 10^3/uL (1.4-6.5); Anisocytosis 2+; Normal RBC Morphology No; Platelets Checked Yes; Polychromasia 1+
[2025-06-14 06:28] LABS: Basophilic Stippling 1+; Total Cells Counted 100
--- NOTE | 2025-06-14 07:40 | W.PN.HOSP.TC ---
Addendum entered and electronically signed by Tahira Sanchez MD 06/15/25 12:27:
# Underweight
Addendum entered and electronically signed by Tahira Sanchez MD 06/14/25 13:10:
total DC time 40 min
Original Note:
Today's Communication/Plan
-
Advance to low residue diet
discharge planning
Assessment / Plan
Assessment / Plan
HPI: 64 yo female past medical history of Metastatic Hepatocellular Carcinoma managed at [facility] where patient resides; who presented with vomiting and bloody stools.
Patient awoke around 3AM and had bowel movement described as loco red colored. She then had an episode of hematemesis. Patient then had a second bloody bowel movement about 15 minutes prior to arrival.
Patient reports ongoing treatment for her metastatic hepatocellular carcinoma which was originally diagnosed in 2019.
Patient denies any prior history of GI Bleed and denies cirrhosis. She denies prior upper endoscopy or colonoscopy.
A/P:
# Acute blood loss anemia 2/2 Acute upper GI bleeding
s/p 1 unit PRBC transfusion
Status post endoscopy on admission 06/10 which noted duodenal ulcer and esophageal varices.
Due to persistent melanotic stools and drop in hemoglobin, s/p repeat endoscopy 06/11 for esophageal varices banding.
Cont PPI BID.
Off octreotide, can DC ceftriaxone after discharge (received 4 days)
Avoid NSAIDs.
Consider to start Lasix 20 mg and Aldactone 50 mg once she goes back to her primary team in [place].
Hgb stable at 8.0 today
Advance diet to low residue
d/w GI
# Metastatic Hepatocellular Carcinoma
# Pancytopenia likely due to chemo
# Transaminitis
# Cirrhosis with Ascites
Managed at [facility]
Hold Cabometyx
s/p paracentesis 06/12, 1.5 L removed, no SBP
# Chronic bradycardia
Denies any lightheadedness or dizziness. No pauses noted.
Per patient at baseline her heart rate at rest is around mid 40s. Not a candidate for BB.
Continue to monitor closely.
# Hypothyroidism
Continue levothyroxine
# Depression
Continue Effexor
# Hypomagnesemia
# Hypokalemia
Replete and monitor lytes
DVT proph: SCDs
FC
DW GI
DW RN
Anticipated Discharge: Today
Subjective/Interval History
-
Date of Service: June 14, 2025
Objective Data
-
Labs:
Laboratory Results
06/14/25
04:14
WBC 1.4 L*
Hgb 8.0 L
Hct 25.0 L
Plt Count 59 L
Sodium 134 L
Potassium 3.8
Chloride 108 H
Carbon Dioxide 23
BUN 6 L
Creatinine 0.5 L
Glucose 93
Calcium 7.9 L
Total Bilirubin 0.7
AST 53 H
ALT 44 H
Alkaline Phosphatase 323 H
Vital Signs:
Vital Signs
Temp Pulse Resp BP Pulse Ox
36.4 C 80 12 131/75 97
06/14/25 03:00 06/14/25 06:00 06/14/25 06:00 06/14/25 06:00 06/14/25 06:00
I&O
06/13/25 06/14/25 06/15/25
06:59 06:59 06:59
Intake Total 480 / 480 2084
Balance 480 / 480 2084
Review of Systems
-
History Source: Patient
Abdomen/GI: Denies Bloody Stools
Physical Exam
-
General: Well Developed, No Apparent Distress, Comfortable, Conversant and Other (paleness has improved )
HEENT: Normocephalic, Atraumatic and Moist Mucous Membranes
Respiratory: Clear to Auscultation and Non Labored Respirations; Negative Accessory Resp Muscle Use
Cardiac: Regular Rhythm and S1/S2; Negative Murmur, Rub or Gallop
GI: Soft, Nontender, Nondistended and Normal Bowel Sounds; Negative Organomegaly
Rectal: Deferred by Provider
Musculoskeletal: No Clubbing, No Cyanosis and No Edema
Skin: Negative Rash
Neuro: Awake, Alert, Oriented and AO x 3
Psych: Calm and Intact Judgement/Insight
Data Reviewed
-
Labs: Labs Reviewed by me
--- NOTE | 2025-06-14 09:14 | PTOTSP ---
PATIENT ADMITTED WITH HEMATEMESIS AND BRIGHT RED BLOOD PER RECTUM. PATIENT STATES THAT SHE HAS BEEN ON CLEAR LIQUIDS SINCE THURSDAY AND IS EAGER TO EAT. PATIENT MINIMALLY LIGHTHEADED SHE FEELS DUE TO THIS HOWEVER VITALS WERE STABLE THROUGHOUT
SESSION. PATIENT INDEPENDENT WITH MOBILITY ON LEVEL SURFACES WELL ELEVATIONS REQUIRING NO FURTHER ACUTE CARE SKILLED P.T. AT THIS TIME. WILL DISCHARGE FROM P.T. SERVICES.
[2025-06-14] MEDS: PROTONIX IV 40 MG IV (09:56)
[2025-06-14] MEDS: NSS (PRESERVATIVE FREE) 10 ML IV (09:56)
[2025-06-14] MEDS: FLUSH (NSS) 2 FLUSH IV (09:57)
--- NOTE | 2025-06-14 11:02 | CM ---
CM met with pt bedside
Plan for discharge today pending toleration of diet
No dc needs noted- she will call her sister for a ride home
Discharge Disposition- home, no needs- family transport
--- NOTE | 2025-06-14 11:23 | W.PN.GI.CBS2 ---
Addendum entered and electronically signed by Jesenia Krishna MD 06/14/25 17:07:
I saw and examined the patient.
The IMMIGRATION SPECIALIST or PA's note was reviewed and I agree with the note.
Comment: Patient without any abdominal pain, nausea or vomiting. Tolerating 2 g sodium diet
Couple of small soft bowel movements without significant diarrhea
Hemoglobin stable without any melena
- New diagnosis of cirrhosis with underlying history of liver cancer, grade 2 esophageal varices status post banding
Continue Protonix 40 mg twice a day
2 g sodium diet
Ideally would need beta-ivet for secondary prophylaxis variceal bleeding but patient's heart rate is usually between 40-60 time is not a candidate but she will follow-up with outpatient gastroenterology
Paracentesis with ascitic fluid negative for SBP, cytology pending.
Discussed with patient that she should get in touch with medical records to get the cytology results to her oncologist office in [place].
Also suggested following up with bingo clerk there, she will need to be started on Lasix and Aldactone 20/50 mg but electrolytes have to be closely monitored once it is started. Her oncologist is trying to get her an appointment with local
bingo clerk and she will follow-up with them.
Original Note:
Today's Communication / Plan
-
as per plan
Assessment / Plan
-
64 yo F pmh liver cancer with mets s/p multiple resections and undergoing Y90 p/w hematemesis and BRBPR. Hb 8.4, plt 141, INR 1.16, BUN 26.
EGD 06/10 showed ulcer and varices - thought ulcer cause of bleeding
However then had melena and drop in Hb so repeated EGD 06/11 and banded the varices
New diagnosis of cirrhosis (? related to Y90?)
Recommendations:
- Pantoprazole 40 mg po BID
- soft 2 gm low NA diet
- Paracentesis without SBP
- daily weights
- Would benefit from coreg, lasix, aldactone on DC but her pulse is in the 40-50s intermittently. Gave patient recommendations of Meds after DC of Lasix 20 mg and Aldactone 50 mg (no Rx to be given) she needs to follow up with GI or PCP. Patient has
appt with her Oncologist next week who will be assisting her with this.
-Patient follows up at [place] (lives there, here visiting her sister)
-Patient told to obtain her records prior to DC to take back with her to [place].
Subjective
Subjective
Date of Service: June 14, 2025
Patient feeling well. Awaiting her solid diet this morning. Tolerated full liquids without any difficulty. Had 2 soft mushy bowel movements last p.m. without any signs of blood. There was a small amount of mucus in it. Discussed again at length
to follow 2 g low-sodium diet. Patient needs to follow-up with oncology in [place] next week. Was instructed to follow-up with GI/PCP as well in the next 2 to 4 weeks. Recommendations for Coreg, Lasix and Aldactone already given to patient.
Discussed with her that we would not be prescribing these secondary to bradycardia, as well as no diuretics as she would need to have labs performed within a couple days. Patient understands. Reviewed with her as well her EGD findings.
Objective
Data Reviewed
Laboratory Data:
Laboratory Results
06/14/25 04:14
06/14/25 04:14
Laboratory Results
PT 15.0 Sec (11.4-14.6) H 06/12/25 04:42
INR 1.14 06/12/25 04:42
APTT 25.5 Sec (23.4-35.0) 06/10/25 13:01
Magnesium 1.7 mg/dl (1.6-2.3) 06/13/25 05:11
Total Bilirubin 0.7 mg/dl (0.2-1.3) 06/14/25 04:14
AST 53 U/L (14-36) H 06/14/25 04:14
ALT 44 U/L (0-35) H 06/14/25 04:14
Alkaline Phosphatase 323 U/L (38-126) H 06/14/25 04:14
Vital Signs and I&O:
Vital Signs
Temp Pulse Resp BP Pulse Ox
98.5 F 82 11 156/79 99
06/14/25 11:14 06/14/25 08:47 06/14/25 08:47 06/14/25 08:47 06/14/25 08:47
I&O
06/13/25 06/14/25 06/15/25
06:59 06:59 06:59
Intake Total 480 / 480 2084
Balance 480 / 480 2084
Physical Exam
Physical Exam
HEENT: Anicteric
Cardiology: Normal Sinus Rhythm
Pulmonary: Clear
GI: Soft, Non Distended (Very mildly distended), Non Tender and Normal Bowel Sounds
Extremities: No Edema
Neuro: Non Focal
--- NOTE | 2025-06-14 11:26 | W.DCSUMMARY ---
Discharge Summary
Discharge Data
Date of Admission: 06/10/25
Date of Discharge: 06/14/25
Total time spent discharging patient (in min): 40
-
Pending Results: No
Hospital Course
Principal Diagnosis:
# Acute blood loss anemia 2/2 upper GI bleeding, 2/2 duodenal ulcer and esophageal varices (status post banding)
# Cirrhosis with Ascites
Chronic Diagnoses:�
# Metastatic Hepatocellular Carcinoma managed at [facility]
# Pancytopenia likely due to chemo
# Transaminitis
# Chronic bradycardia
# Hypothyroidism, on levothyroxine
# Depression, on Effexor
Consultations:�
Gastroenterology
Procedures:�
Endoscopy on admission 06/10 which noted duodenal ulcer and esophageal varices.
Clinical course:�
This is a 64 yo female past medical history as stated above, who presented with vomiting and bloody stools.
Problem 1:
Acute blood loss anemia 2/2 upper GI bleeding, 2/2 duodenal ulcer and esophageal varices.
The patient received 1 unit PRBC transfusion this admission.
She underwent endoscopy on admission 06/10 which noted duodenal ulcer and esophageal varices.
Due to persistent melanotic stool and drop in hemoglobin, she had a repeat endoscopy on 06/11 for esophageal varices banding.
She was maintained on Protonix 40 mg twice daily which she can continue going forward after discharge until further directed by her outpatient fermenter wine.
She received octreotide drip during this admission, and ceftriaxone for 4 days for SBP prophylaxis.
She can consider starting Lasix 20 mg and Aldactone 50 mg once she goes back to her primary team in [place].
Her hemoglobin was stable at 8.0 on the day of discharge.
She can check repeat CBC with her physicians in [place].
Problem 2:
Cirrhosis with ascites.
She underwent paracentesis on 06/12 and 1.5 L was removed; there was no SBP.
As for the rest of her medical problems, they were stable during her hospital stay.
Discharge Plan
-
Patient Disposition: Home (Routine Discharge)
Discharge Diagnosis/Procedures: Acute blood loss anemia due to upper GI bleeding (endoscopy on admission 06/10 which noted duodenal ulcer and esophageal varices, repeat endoscopy 06/11 for esophageal varices banding);
Cirrhosis with Ascites status post paracentesis 06/12 (1.5 L removed, no SBP);
Metastatic Hepatocellular Carcinoma;
Pancytopenia likely due to chemo;
Transaminitis
Condition: Fair
Diet: As tolerated and Other diet
Additional Diets: low residue for 1 week
Activity: As tolerated
Driving Restrictions: As prior to admission
Blood Work: CBC, CMP in 1 week with your PCP
Referrals:
NONE,* [Family Provider, Internal Medicine] - in less than 1 week
Additional Discharge Medication Instructions: Continue protonix 40 mg twice daily
Avoid NSAIDs
Consider to start Lasix 20 mg and Aldactone 50 mg once you go back to your primary team in [place].
Prescriptions:
New
pantoprazole [Protonix] 40 mg tablet,delayed release (DR/EC)
40 mg PO BID Qty: 60 0RF
Continued
levothyroxine 137 mcg Tablet
137 mcg PO DAILY
venlafaxine [Effexor XR] 75 mg Capsule,Extended Release 24hr
75 mg PO DAILY
Cabometyx 60 mg tablet
30 mg PO DAILY
Discontinued
pantoprazole [Protonix] 40 mg Tablet,Delayed Release (Dr/Ec)
40 mg PO DAILY
Discharge Orders:
Discharge Patient (As Directed); Ordered 06/14/25
Ordered By: Tahira Sanchez
Discharge Date and Time
Print Language: MALTESE
--- NOTE | 2025-06-14 11:56 | PTCARENOTE ---
Patient tolerating low residue diet. Hemoglobin stable this morning. VS stable,afebrile. Patient to be discharged later today.
--- NOTE | 2025-06-14 14:50 | PN.CDI ---
CDI
- -
CDI:
Physician Documentation Request
Admit Date: 06/10/25 14:52
Dear Doctor Daniel,
Clinical Indicators:
Patient admitted with acute upper GI bleed; PMH includes metastatic hepatocellular carcinoma.
Height: 5 ft 9 in
Weight: 119 lbs 11.3 oz
BMI: 17.7
06/14 note/assessment: 'BMI: 17.7 (underweight)'
If possible, please provide an associated diagnosis related to the abnormal BMI (< or = to 19) such as:
Underweight
Cachectic
Other, please specify
Use of terms such as suspected, likely, concern for, or probable (associated with a specific diagnosis that is being evaluated, monitored, or treated as if it exists) are acceptable and can be coded in the inpatient setting, when documented at the
time of discharge.
Thank you,
SERAFIN Denney RN
CDI Specialist
available via tiger text
Please use your independent medical judgment in providing your response.
== END 2025-06-14 13:30 | disposition home or self-care (01) | DRG 432 ==
LOC: IMU 14:52
PROVIDERS: Hospitalist; Nurse Practitioner Family; Physician Assistant Medical; Radiology Vascular & Interventional Radiology; ADMITTING PHYSICIAN Internal Medicine; ATTENDING PHYSICIAN Internal Medicine; CONSULT PHYSICIAN Internal Medicine Gastroenterology; EMERGENCY PHYSICIAN Emergency Medicine
PROC: 30233N1 Transfusion of Nonautologous Red Blood Cells into Peripheral Vein, Percutaneous Approach (ICD-10-PCS; 2025-06-10)
PROC: 0DB68ZX Excision of Stomach, Via Natural or Artificial Opening Endoscopic, Diagnostic (ICD-10-PCS; 2025-06-10)
PROC: 06L38CZ Occlusion of Esophageal Vein with Extraluminal Device, Via Natural or Artificial Opening Endoscopic (ICD-10-PCS; 2025-06-11)
PROC: 0W9G3ZZ Drainage of Peritoneal Cavity, Percutaneous Approach (ICD-10-PCS; 2025-06-12)
DX: K74.60 Unspecified cirrhosis of liver (principal); D61.810 Antineoplastic chemotherapy induced pancytopenia; I85.11 Secondary esophageal varices with bleeding; K26.4 Chronic or unspecified duodenal ulcer with hemorrhage; C22.0 Liver cell carcinoma; K76.6 Portal hypertension; R18.8 Other ascites; Z68.1 Body mass index [BMI] 19.9 or less, adult; D62 Acute posthemorrhagic anemia; C79.31 Secondary malignant neoplasm of brain; C78.00 Secondary malignant neoplasm of unspecified lung; E03.9 Hypothyroidism, unspecified; F32.A Depression, unspecified; I10 Essential (primary) hypertension; K44.9 Diaphragmatic hernia without obstruction or gangrene; K31.7 Polyp of stomach and duodenum; K21.9 Gastro-esophageal reflux disease without esophagitis; K22.2 Esophageal obstruction; R00.1 Bradycardia, unspecified; E83.42 Hypomagnesemia; K31.89 Other diseases of stomach and duodenum; T45.1X5A Adverse effect of antineoplastic and immunosuppressive drugs, initial encounter; E87.6 Hypokalemia; R63.6 Underweight; Z98.82 Breast implant status; Z87.891 Personal history of nicotine dependence; Z85.118 Personal history of other malignant neoplasm of bronchus and lung; Z85.05 Personal history of malignant neoplasm of liver; Z79.899 Other long term (current) drug therapy; Z79.890 Hormone replacement therapy; Z90.49 Acquired absence of other specified parts of digestive tract; Z90.2 Acquired absence of lung [part of]; Z85.841 Personal history of malignant neoplasm of brain
CPT/HCPCS: 49083; 76700; 80053; 82042; 82607; 82728; 82746; 83540; 83550; 83735; 84157; 85014; 85018; 85025; 85027; 85610; 85730; 86850; 86870; 86900; 86901; 86902; 86905; 86920; 86922; 87015; 87070; 87205; 88112; 88305; 88342; 89051; 93005; 93975; 96361; 96365; 96375; 97162; 99285; J2354; P9016